=== PATIENT | male | born 1955 | race Two or more races ===

== ENCOUNTER 2016-06-11 06:39 | Emergency (ER) | payer SELFPAY ==
[~2016-06-11] VITALS: Ht 172.7 cm; Wt 86.2 kg
[2016-06-11 06:53] VITALS: BP 124/70
[2016-06-11] MEDS ORDERED: IV NORMAL SALINE 1000ML BAG 1,000 ML IV ONE (07:00)
[2016-06-11] MEDS ORDERED: MECLIZINE HCL 12.5 MG TABLET. PO ONE (07:00)
[2016-06-11] MEDS ORDERED: DIAZEPAM 10 MG/2 ML DISP.SYRIN. IV ONE (07:00)
[2016-06-11 07:16] LABS: BASO % 0 % (0-3); EOS % 2 % (0-3); HEMATOCRIT 45.9 % (39.0-53.0); HEMOGLOBIN 15.8 g/dL (13.0-17.5); LYMPH # 2.9 x10^3/uL (1.0-4.8); LYMPH % 46 % (24-48); MEAN CORPUSCULAR HEMOGLOBIN 33 pg (25-35); MEAN CORPUSCULAR HGB CONC 34 g/dL (31-37); MEAN CORPUSCULAR VOLUME 95 fL (79-100); MONO % 7 % (0-9); NEUT % 45 % (31-73); PLATELET COUNT 194 x10^3/uL (140-400); RED BLOOD COUNT 4.83 x10^6/uL (4.30-5.70); RED CELL DISTRIBUTION WIDTH 14.3 % (11.5-14.5); WHITE BLOOD COUNT 6.3 x10^3/uL (4.0-11.0)
--- NOTE | 2016-06-11 07:22 | EKG ---
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
[2016-06-11 07:24] LABS: CALCIUM 8.5 mg/dL (8.5-10.1); GFR 76.5; POTASSIUM 3.6 mmol/L (3.5-5.1)
[2016-06-11 07:28] LABS: ALBUMIN 3.5 g/dL (3.4-5.0); ALBUMIN/GLOBULIN RATIO 0.9 (1.0-1.7); TOTAL BILIRUBIN 0.5 mg/dL (0.2-1.0); TOTAL PROTEIN 7.5 g/dL (6.4-8.2)
--- NOTE | 2016-06-11 07:35 | RAD ---
Clinical indications: Dizziness today. Poor historian. Technique: Noncontrast axial cross sectional scanning of the head was performed. RS Compliance Statement: One or more of the following individualized dose reduction techniques were utilized for this examination: 1. Automated exposure control 2. Adjustment of the mA and/or kV according to patient size 3. Use of iterative reconstruction technique Findings: No acute intracranial hemorrhage or midline shift or mass-effect or hydrocephalus or extra-axial fluid collection is seen. No focal hypodense area or sulci effacement is seen to indicate an acute infarct or edema radiographically. No skull fracture or pneumocephalus is seen. No opacification of the mastoid sinuses or the paranasal sinuses is seen. The maxillary sinuses are not completely seen in this study. Impression: No acute intracranial abnormality is seen.
[2016-06-11 08:19] LABS: BILIRUBIN,URINE NEGATIVE (NEG); GLUCOSE,URINE NEGATIVE (NEG); NITRITE,URINE NEGATIVE (NEG); PH,URINE 5.5; PROTEIN,URINE NEGATIVE (NEG-TRACE)
[2016-06-11] MEDS ORDERED: MECL25TA3 PO (08:33)
--- NOTE | 2016-06-11 08:33 | PHYS DOC ---
Past Medical History Past Medical History: A-Fib, Hypertension Additional Past Medical Histor: pacemaker Past Surgical History: Other Additional Past Surgical Histo: clavical, pacemaker Alcohol Use: None Drug Use: None Adult General Chief Complaint Chief Complaint: DIZZY/LIGHT HEADED HPI HPI 60-year-old male presents to the emergency department after he woke up profoundly dizzy. He states it feels like the room is spinning. The only thing that helps his symptoms are likewise with his eyes closed. He states any head movement or eye opening causes the symptoms to worsen. He denies any headache or lateralizing neurologic weakness. He denies any speech disturbance. Patient is [place] only speaking in the spanish medical interpreter was his Bengali-speaking family. Patient also denies any fever chills or sweats.] Review of Systems Review of Systems Constitutional: Denies fever or chills [] Eyes: Denies change in visual acuity, redness, or eye pain [] HENT: Denies nasal congestion or sore throat [] Respiratory: Denies cough or shortness of breath [] Cardiovascular: No additional information not addressed in HPI [] GI: Denies abdominal pain, nausea, vomiting, bloody stools or diarrhea [] : Denies dysuria or hematuria [] Musculoskeletal: Denies back pain or joint pain [] Integument: Denies rash or skin lesions [] Neurologic: Per history of present illness [] Endocrine: Denies polyuria or polydipsia [] Current Medications Current Medications Current Medications Medications (Trade) Dose Ordered Sig/Afsaneh Start Time Stop Time Status Last Admin Dose Admin Diazepam (Valium) 2.5 mg 1X ONCE 06/11/16 07:00 06/11/16 07:01 DC 06/11/16 07:11 2.5 MG Meclizine HCl (Antivert) 25 mg 1X ONCE 06/11/16 07:00 06/11/16 07:01 DC 06/11/16 07:10 25 MG Ondansetron HCl (Zofran) 8 mg 1X ONCE 06/11/16 08:45 06/11/16 08:46 DC 06/11/16 09:08 8 MG Sodium Chloride (Iv Sodium Chloride 0.9% 1000ml Bag) 1,000 ml @ 1,000 mls/hr 1X ONCE 06/11/16 07:00 06/11/16 07:59 DC 06/11/16 07:15 1,000 MLS/HR Allergies Allergies Allergies Coded Allergies Type Severity Reaction Last Updated Verified No Known Drug Allergies 06/11/16 No Physical Exam Physical Exam Constitutional: Well developed, well nourished, mild to moderate distress, acutely ill but not toxic. [] HENT: Normocephalic, atraumatic, bilateral external ears normal, oropharynx moist, no oral exudates, nose normal. [] Eyes: PERRLA, EOMI, conjunctiva normal, no discharge. [] Neck: Normal range of motion, no tenderness, supple, no stridor. [] Cardiovascular:Heart rate regular rhythm, no murmur [] Lungs & Thorax: Bilateral breath sounds clear to auscultation [] Abdomen: Bowel sounds normal, soft, no tenderness, no masses, no pulsatile masses. [] Skin: Warm, dry, no erythema, no rash. [] Back: No tenderness, no CVA tenderness. [] Extremities: No tenderness, no cyanosis, no clubbing, ROM intact, no edema. [] Neurologic: Alert and oriented X 3, normal motor function, normal sensory function, no focal deficits noted. [] Psychologic: Somnolent. [] Current Patient Data Vital Signs Vital Signs Date Time Temp Pulse Resp B/P Pulse Ox O2 Delivery O2 Flow Rate FiO2 06/11/16 06:53 97.9 90 20 124/70 99 Room Air 97.9 Lab Values Laboratory Tests Test 06/11/16 06:50 06/11/16 08:10 White Blood Count 6.3x10^3/uL (4.0-11.0) Red Blood Count 4.83x10^6/uL (4.30-5.70) Hemoglobin 15.8g/dL (13.0-17.5) Hematocrit 45.9% (39.0-53.0) Mean Corpuscular Volume 95fL (79-100) Mean Corpuscular Hemoglobin 33pg (25-35) Mean Corpuscular Hemoglobin Concent 34g/dL (31-37) Red Cell Distribution Width 14.3% (11.5-14.5) Platelet Count 194x10^3/uL (140-400) Neutrophils (%) (Auto) 45% (31-73) Lymphocytes (%) (Auto) 46% (24-48) Monocytes (%) (Auto) 7% (0-9) Eosinophils (%) (Auto) 2% (0-3) Basophils (%) (Auto) 0% (0-3) Neutrophils # (Auto) 2.8x10^3uL (1.8-7.7) Lymphocytes # (Auto) 2.9x10^3/uL (1.0-4.8) Monocytes # (Auto) 0.4x10^3/uL (0.0-1.1) Eosinophils # (Auto) 0.1x10^3/uL (0.0-0.7) Basophils # (Auto) 0.0x10^3/uL (0.0-0.2) Sodium Level 140mmol/L (136-145) Potassium Level 3.6mmol/L (3.5-5.1) Chloride Level 106mmol/L (98-107) Carbon Dioxide Level 24mmol/L (21-32) Anion Gap 10 (6-14) Blood Urea Nitrogen 16mg/dL (8-26) Creatinine 1.0mg/dL (0.7-1.3) Estimated GFR (Cockcroft-Gault) 76.5 BUN/Creatinine Ratio 16 (6-20) Glucose Level 166mg/dL (70-99) H Glucose (Fingerstick) 151mg/dL (70-99) H Calcium Level 8.5mg/dL (8.5-10.1) Total Bilirubin 0.5mg/dL (0.2-1.0) Aspartate Amino Transferase (AST) 25U/L (15-37) Alanine Aminotransferase (ALT) 41U/L (16-63) Alkaline Phosphatase 93U/L (46-116) Troponin I Quantitative < 0.017ng/mL (0.000-0.055) Total Protein 7.5g/dL (6.4-8.2) Albumin 3.5g/dL (3.4-5.0) Albumin/Globulin Ratio 0.9 (1.0-1.7) L Urine Collection Type Unknown Urine Color Yellow Urine Clarity Cloudy Urine pH 5.5 Urine Specific [place] 1.025 Urine Protein Negativemg/dL (NEG-TRACE) Urine Glucose (UA) Negativemg/dL (NEG) Urine Ketones (Stick) Negativemg/dL (NEG) Urine Blood Negative (NEG) Urine Nitrite Negative (NEG) Urine Bilirubin Negative (NEG) Urine Urobilinogen Dipstick 1.0mg/dL (0.2 mg/dL) Urine Leukocyte Esterase Negative (NEG) Urine RBC 0/HPF (0-2) Urine WBC 1-4/HPF (0-4) Urine Squamous Epithelial Cells Few/LPF Urine Transitional Epithelial Cells Few/LPF Urine Bacteria 0/HPF (0-FEW) Urine Mucus Marked/LPF Laboratory Tests 06/11/16 06:50 Laboratory Tests 06/11/16 06:50 EKG EKG [EKG: Normal sinus rhythm rate of [address]-T changes] Radiology/Procedures Radiology/Procedures [] Impressions: PROCEDURE: HEAD WO CONTRAST Clinical indications: Dizziness today. Poor historian. Technique: Noncontrast axial cross sectional scanning of the head was performed. RS Compliance Statement: One or more of the following individualized dose reduction techniques were utilized for this examination: 1. Automated exposure control 2. Adjustment of the mA and/or kV according to patient size 3. Use of iterative reconstruction technique Findings: No acute intracranial hemorrhage or midline shift or mass-effect or hydrocephalus or extra-axial fluid collection is seen. No focal hypodense area or sulci effacement is seen to indicate an acute infarct or edema radiographically. No skull fracture or pneumocephalus is seen. No opacification of the mastoid sinuses or the paranasal sinuses is seen. The maxillary sinuses are not completely seen in this study. Impression: No acute intracranial abnormality is seen. Course & Med Decision Making Course & Med Decision Making Pertinent Labs and Imaging studies reviewed. (See chart for details) [ED course: Evaluation reveals a 60-year-old male with vertiginous type symptoms. He was given IV fluids and 2.5 mg IV and meclizine 25 mg by mouth which did help alleviate his symptoms. I explained vertigo to the family and they understood. We'll treat the patient as an outpatient with meclizine.] Dragon Disclaimer Dragon Disclaimer This electronic medical record was generated, in whole or in part, using a voice recognition dictation system. Departure Departure Impression: Primary Impression: Vertigo Disposition: HOME, SELF-CARE Condition: IMPROVED Referrals: NO PCP (PCP) Patient Instructions: Vertigo Additional Instructions: Thank you for allowing us to participate in your care today. Followup with your primary care physician in 3 days if your symptoms do not improve. Return to the emergency department you have any new or concerning findings. This should be evaluated by the primary care physician and any necessary consulting services for continued management within a few days after discharge. Return to emergency room if you have any new or concerning symptoms including but not limited to fever, chills, nausea, vomiting, intractable pain, any new rashes, chest pain, shortness of air, uncontrolled bleeding, difficulty breathing, and/or vision loss. You may have been prescribed medication that can change in your level of thinking and ability to operate machinery. These medications include hydrocodone and Ativan. Also, Benadryl has been known to do this as well. Be sure to check with your pharmacist and ask if the medications you've prescribed can affect your level of consciousness. I recommend not operating heavy machinery or driving while on medication such as these. Scripts Meclizine Hcl 25 Mg Tablet1 Tab PO Q8HRS PRN dizziness #30 TAB Ref 30 Prov:CHIKIS DOS SANTOS DO 06/11/16 CHIKIS DOS SANTOS DO Jun 11, 2016 08:33
[2016-06-11 08:37] LABS: BACTERIA,URINE 0 /HPF (0-FEW); RBC,URINE 0 /HPF (0-2); SQUAMOUS EPITHELIAL CELL,UR FEW /LPF
[2016-06-11] MEDS ORDERED: ONDANSETRON PF 4 MG/2 ML VIAL. IV ONE (08:45)
== END 2016-06-11 10:45 | disposition home or self-care (01) ==
LOC: ER 06:39
DX: R42 Dizziness and giddiness (principal); I10 Essential (primary) hypertension; I48.91 Unspecified atrial fibrillation; Z95.0 Presence of cardiac pacemaker
CPT/HCPCS: 36415; 51701; 70450; 80053; 81001; 82947; 84484; 85027; 93005; 96361; 96374; 96375; 99285; J2405; J3360; J7030; J8597

== ENCOUNTER 2016-08-02 13:40 | Emergency (ER) | payer SELFPAY ==
[~2016-08-02] VITALS: Ht 167.6 cm; Wt 92.1 kg
[~2016-08-02 13:40] MED LIST: MECL25TA3 PO
[2016-08-02 13:51] VITALS: BP 120/73
[2016-08-02] MEDS ORDERED: DEXAMETHASONE SOD PHOS 20 MG/5 ML VIAL. IM ONE (15:15)
[2016-08-02] MEDS ORDERED: DIPHENHYDRAMINE 50 MG/ML VIAL. IM ONE (15:15)
[2016-08-02] MEDS ORDERED: FAMOTIDINE 20 MG TABLET. PO ONE (15:15)
[2016-08-02] MEDS ORDERED: FAMO-63 PO (15:55)
[2016-08-02] MEDS ORDERED: PRED50TA PO (15:55)
[2016-08-02] MEDS ORDERED: DIPH25CA58 PO (15:55)
--- NOTE | 2016-08-02 15:55 | PHYS DOC ---
Past Medical History Past Medical History: CAD, High Cholesterol, Hypertension Additional Past Medical Histor: pacemaker Past Surgical History: Pacemaker Additional Past Surgical Histo: clavical, pacemaker Alcohol Use: None Drug Use: None Adult General Chief Complaint Chief Complaint: ALLERGIC REACTION HPI HPI Patient is a 60 year old medical presents with a rash that began after starting to take amiodarone. Patient states he was put on amiodarone on July by Dr. Riley. He states 3 days ago he noticed a rash throughout his body. Patient denies any other cause for this rash other than amiodarone. Review of Systems Review of Systems Constitutional: Denies fever or chills [] Eyes: Denies change in visual acuity, redness, or eye pain [] HENT: Denies nasal congestion or sore throat [] Respiratory: Denies cough or shortness of breath [] Cardiovascular: No additional information not addressed in HPI [] GI: Denies abdominal pain, nausea, vomiting, bloody stools or diarrhea [] : Denies dysuria or hematuria [] Musculoskeletal: Denies back pain or joint pain [] Integument: rash Neurologic: Denies headache, focal weakness or sensory changes [] Endocrine: Denies polyuria or polydipsia [] Current Medications Current Medications Current Medications Medications (Trade) Dose Ordered Sig/Afsaneh Start Time Stop Time Status Last Admin Dose Admin Dexamethasone Sodium Phosphate (Decadron) 10 mg 1X ONCE 08/02/16 15:15 08/02/16 15:16 DC 08/02/16 14:53 10 MG Diphenhydramine HCl (Benadryl) 25 mg 1X ONCE 08/02/16 15:15 08/02/16 15:16 DC 08/02/16 14:52 25 MG Famotidine (Pepcid) 20 mg 1X ONCE 08/02/16 15:15 08/02/16 15:16 DC 08/02/16 14:51 20 MG Allergies Allergies Allergies Coded Allergies Type Severity Reaction Last Updated Verified No Known Drug Allergies 06/11/16 No Physical Exam Physical Exam Constitutional: Well developed, well nourished, no acute distress, non-toxic appearance. [] HENT: Normocephalic, atraumatic, bilateral external ears normal, oropharynx moist, no oral exudates, nose normal. [] Eyes: PERRLA, EOMI, conjunctiva normal, no discharge. [] Neck: Normal range of motion, no tenderness, supple, no stridor. [] Cardiovascular:Heart rate regular rhythm, no murmur [] Lungs & Thorax: Bilateral breath sounds clear to auscultation [] Abdomen: Bowel sounds normal, soft, no tenderness, no masses, no pulsatile masses. [] Skin: Patient is covered with moderate amount of fine erythematous papular rash throughout his body. Back: No tenderness, no CVA tenderness. [] Extremities: No tenderness, no cyanosis, no clubbing, ROM intact, no edema. [] Neurologic: Alert and oriented X 3, normal motor function, normal sensory function, no focal deficits noted. [] Psychologic: Affect normal, judgement normal, mood normal. [] Current Patient Data Vital Signs Vital Signs Date Time Temp Pulse Resp B/P Pulse Ox O2 Delivery O2 Flow Rate FiO2 08/02/16 13:51 98.0 80 18 100 Room Air 98.0 EKG EKG [] Radiology/Procedures Radiology/Procedures [] Course & Med Decision Making Course & Med Decision Making Pertinent Labs and Imaging studies reviewed. (See chart for details) Patient has allergic reaction rash from taking amiodarone. He was given Decadron , Benadryl and Pepcid in the ED. 15:[address] Riley who ordered this medicine. He states we can stop Amiodarone and discharge patient with prednisone and have patient follow up in the office this region is week. Dragon Disclaimer Dragon Disclaimer This electronic medical record was generated, in whole or in part, using a voice recognition dictation system. Departure Departure Impression: Primary Impression: Allergic reaction caused by a drug Disposition: HOME, SELF-CARE Condition: STABLE Referrals: YADIEL CORONADO DO (PCP) TAMIKO RILEY MD Follow-up with Dr. Riley in the course of this week Patient Instructions: Drug Allergy Additional Instructions: You were seen for an allergic reaction to Amiodarone. I spoke with Dr. Riley he requested you stop taking amiodarone. Take the rest of the prescribed medicines as he ordered as well as the ones with sending him home on. Come back to the ED if symptoms worsen. Scripts Famotidine (Pepcid)20 Mg Vicmsp22 Mg PO DAILY #7 TAB Prov:JESSICA HOWARD APRN 4/2/17 Diphenhydramine Hcl (Benadryl)25 Mg Capsule1 Cap PO Q4HRS RASH #30 CAP Ref 1 Prov:JESSICA HOWARD APRN 08/02/16 Prednisone 50 Mg Tablet1 Tab PO DAILY #4 TAB Prov:JESSICA HOWARD APRN 08/02/16 Problem Qualifiers Primary Impression: Allergic reaction caused by a drug Encounter type: initial encounter Qualified Code: T78.40XA - Allergy, unspecified, initial encounter JESSICA HOWARD APRN Aug 02, 2016 15:55
== END 2016-08-02 16:06 | disposition home or self-care (01) ==
LOC: ER 13:40
DX: T46.2X5A Adverse effect of other antidysrhythmic drugs, initial encounter (principal); I25.10 Atherosclerotic heart disease of native coronary artery without angina pectoris; E78.00 Pure hypercholesterolemia, unspecified; I10 Essential (primary) hypertension; Z95.0 Presence of cardiac pacemaker; Y92.89 Other specified places as the place of occurrence of the external cause
CPT/HCPCS: 96372; 99284; J1100; J1200